=== PATIENT | male | born 1995 | race Caucasian/White ===

== ENCOUNTER 2018-07-02 00:03 | Emergency (ER) | payer MEDICAID ==
[~2018-07-02] VITALS: Ht 177.8 cm; Wt 72.1 kg
[2018-07-02 00:13] VITALS: Ht 177.8 cm; Wt 72.1 kg
[2018-07-02 02:40] VITALS: BP 111/71
== END 2018-07-02 02:40 | disposition home or self-care (01) ==
LOC: ED 00:03
DX: S01.311A Laceration without foreign body of right ear, initial encounter (principal); W22.8XXA Striking against or struck by other objects, initial encounter; Y93.89 Activity, other specified; Y92.89 Other specified places as the place of occurrence of the external cause; Y99.8 Other external cause status
CPT/HCPCS: J2001

== ENCOUNTER 2018-08-06 20:41 | Emergency (ER) | payer SELFPAY ==
[~2018-08-06] VITALS: Ht 177.8 cm; Wt 76.7 kg
[2018-08-06 20:54] VITALS: Ht 177.8 cm; Wt 76.7 kg
[2018-08-06 22:21] VITALS: BP 114/76
== END 2018-08-06 22:21 | disposition home or self-care (01) ==
LOC: ED 20:41
DX: S39.012A Strain of muscle, fascia and tendon of lower back, initial encounter (principal); V43.62XA Car passenger injured in collision with other type car in traffic accident, initial encounter; Y93.89 Activity, other specified; Y92.481 Parking lot as the place of occurrence of the external cause; Y99.8 Other external cause status